=== PATIENT | female | born 1960 | race Caucasian/White ===

== ENCOUNTER 2018-07-01 21:58 | Emergency (ER) | payer BC ==
[~2018-07-01] VITALS: Ht 172.7 cm; Wt 63.5 kg
[2018-07-01] MEDS ORDERED: TDAP DIPH,PERTUSS,TET VAC/PF 0.5 ML DISP.SYRIN IM ONE (22:15)
[2018-07-01] MEDS: TDAP DIPH,PERTUSS,TET VAC/PF 0.5 ML DISP.SYRIN IM ONE (22:20)
[2018-07-01] MEDS ORDERED: LET TOPICAL SOLUTION 8 ML UDC ONE (22:26)
[2018-07-01] MEDS ORDERED: NEOMY/BACITRA/POLYMYXIN B OINT UD PACKET TP ONE (22:26)
[2018-07-01] MEDS: LET TOPICAL SOLUTION 8 ML UDC TOP ONE (22:29)
[2018-07-01] MEDS: NEOMY/BACITRA/POLYMYXIN B OINT UD PACKET TP ONE (22:30)
--- NOTE | 2018-07-01 22:31 | NUR ---
PT IN BED. PT'S FAMILY AT BEDSIDE. PT IS CALM AND COOPERATIVE. FINGER LAC HAS BEEN CLEANED W/ NS. LET IN FINGER WEB SPACES. PT IS AWAITING LAC REPAIR.
[2018-07-01] MEDS: SODIUM BICARBONATE 4.2 % (NEUT) 5 ML VIAL TP ONE (22:56)
[2018-07-01] MEDS: LIDOCAINE HCL 2% 20 ML VIAL TP ONE (22:56)
[2018-07-02] MEDS: CEPHALEXIN MONOHYDRATE 250 MG CAPSULE PO ONE (00:33)
[2018-07-02] MEDS: HYDROCODONE/APAP 5-325MG TABLET PO ONE (00:34)
[2018-07-02] MEDS ORDERED: CEPHALEXIN MONOHYDRATE 250 MG CAPSULE ONE (00:36)
[2018-07-02] MEDS ORDERED: HYDROCODONE/APAP 5-325MG TABLET ONE (00:36)
--- NOTE | 2018-07-02 00:36 | NUR ---
Patient discharged to home in stable conditon. Written and verbal after care instructions given. Patient verbalizes understanding of instructions. Patient able to ambulate unassisted with a steady gait. Patient left with all personal belongings.
[2018-07-02 00:37] VITALS: BP 124/78
== END 2018-07-02 00:35 | disposition home or self-care (01) ==
LOC: ER 21:59
DX: S62.665B Nondisplaced fracture of distal phalanx of left ring finger, initial encounter for open fracture (principal); S61.215A Laceration without foreign body of left ring finger without damage to nail, initial encounter; W23.0XXA Caught, crushed, jammed, or pinched between moving objects, initial encounter; Y93.89 Activity, other specified; Y92.89 Other specified places as the place of occurrence of the external cause; Y99.8 Other external cause status
CPT/HCPCS: 12002; 73140; 90471; 90715; 99284; A4217; A4663; J3490